=== PATIENT | female | born 1955 | race Two or more races ===

== ENCOUNTER 2021-07-30 17:56 | Inpatient (IN) | payer OTHER ==
[~2021-07-30] VITALS: Ht 172.7 cm; Wt 73.9 kg
[2021-07-30] MEDS ORDERED: SODIUM CHLORIDE 0.9% 1000ML BAG (SEPSIS BOLUS) IV ONE (18:15)
[2021-07-30 19:26] LABS: CLARITY URINE CLEAR (CLEAR); COLOR URINE YELLOW (YELLOW); KETONES URINE NEGATIVE (NEGATIVE); LEUKOCYTE ESTERASE URINE NEGATIVE (NEGATIVE); NITRITE URINE NEGATIVE (NEGATIVE); OCCULT BLOOD URINE NEGATIVE (NEGATIVE); PROTEIN URINE NEGATIVE (NEGATIVE); SPECIFIC GRAVITY URINE 1.018 (1.005-1.030)
[2021-07-30 19:42] LABS: CANNABINOID URINE SCREEN NEGATIVE (NEGATIVE); PHENCYCLIDINE URINE SCREEN NEGATIVE (NEGATIVE)
[2021-07-30 19:43] LABS: *AMPHETAMINES SCREEN URINE NEGATIVE (NEGATIVE); *BARBITURATES SCREEN URINE NEGATIVE (NEGATIVE); *BENZODIAZEPINES SCREEN URINE NEGATIVE (NEGATIVE); *COCAINE SCREEN URINE NEGATIVE (NEGATIVE); METHADONE URINE SCREEN NEGATIVE (NEGATIVE); OPIATES URINE SCREEN NEGATIVE (NEGATIVE)
[2021-07-30 20:10] LABS: BASOPHILS % 0.3 % (0.0-2.0); EOSINOPHILS % 0.1 % (0.0-5.0); LYMPHOCYTES % 7.6 % (20.0-50.0); MEAN CORPUSCULAR HEMOGLOBIN 28.1 pg (28.0-32.0); MEAN CORPUSCULAR VOLUME 86.6 fL (81.0-99.0); MEAN PLATELET VOLUME 8.1 fl (7.4-10.4); MONOCYTES % 6.7 % (2.0-8.0); NEUTROPHILS % 85.3 % (40.0-76.0); PLATELET 195 x1000/uL (130-400); RED BLOOD CELL COUNT 3.92 mill/uL (4.2-5.4)
[2021-07-30 20:17] LABS: CHLORIDE 109 mEq/L (98-107)
[2021-07-30 20:20] LABS: PROTHROMBIN TIME 11.1 sec (9.6-11.0)
[2021-07-30 20:22] LABS: ETHANOL BLOOD < 10 mg/dL
[2021-07-30] MEDS ORDERED: ONDANSETRON HCL 4MG/2ML INJ IV PRN (22:15)
[2021-07-30] MEDS ORDERED: ACETAMINOPHEN 325MG TABLET PO PRN ×2 (22:15)
[2021-07-30] MEDS ORDERED: IPRATROPIUM/ALBUTEROL 0.5-3(2.5)MG/3ML NEB NEB PRN (22:15)
[2021-07-30] MEDS ORDERED: POTASSIUM CHLORIDE INJ 40 MEQ in DEXT 5% WATER 250 ML IV NR (23:30)
[2021-07-31 02:00] VITALS: BP 155/82
[2021-07-31 04:00] VITALS: BP 133/59
[2021-07-31 08:00] VITALS: BP 163/76
[2021-07-31] MEDS ORDERED: ENOXAPARIN 40MG/0.4ML SYR SUBCUT SCH (09:00)
[2021-07-31 11:47] LABS: BASOPHILS % 0.5 % (0.0-2.0); EOSINOPHILS % 0.2 % (0.0-5.0); HEMATOCRIT. 31.9 % (36.0-48.0); HEMOGLOBIN. 10.4 g/dL (12.0-16.0); MEAN CORPUSCULAR HEMOGLOBIN 28.1 pg (28.0-32.0); MEAN CORPUSCULAR VOLUME 86.6 fL (81.0-99.0); MEAN PLATELET VOLUME 8.2 fl (7.4-10.4); MONOCYTES % 8.9 % (2.0-8.0); NEUTROPHILS % 70.4 % (40.0-76.0); PLATELET 192 x1000/uL (130-400); RED BLOOD CELL COUNT 3.69 mill/uL (4.2-5.4); RED CELL DISTRIBUTION WIDTH 14.6 % (11.6-14.6)
[2021-07-31 11:52] LABS: CHLORIDE 109 mEq/L (98-107)
[2021-07-31 11:58] LABS: PHOSPHORUS 2.5 mg/dL (2.5-4.9)
[2021-07-31 11:59] LABS: TOTAL IRON BINDING CAPACITY 262 ug/dL (250-450)
[2021-07-31 12:00] VITALS: BP 174/90
[2021-07-31 12:15] LABS: FOLIC ACID (FOLATE) SERUM 13.1 ng/mL (>5.38)
[2021-07-31] MEDS ORDERED: LISI40TA13 PO (13:40)
[2021-07-31] MEDS ORDERED: HYDR12.54 PO (13:40)
[2021-07-31] MEDS ORDERED: HYDRALAZINE 20MG/ML VIAL IV PRN (13:45)
[2021-07-31] MEDS ORDERED: LISINOPRIL 40MG TABLET PO SCH (13:45)
[2021-07-31] MEDS ORDERED: MEDICATION NOT ON FORMULARY EA (Hydrochlorothiazide 1 TAB) PO SCH (13:45)
[2021-07-31] MEDS ORDERED: HYDROCHLOROTHIAZIDE 12.5MG CAPSULE PO SCH (15:00)
[2021-07-31 16:00] VITALS: BP 165/94
[2021-07-31] MEDS ORDERED: RISPERIDONE 0.5MG TABLET PO NR (16:30)
[2021-07-31] MEDS ORDERED: RISP0.5T65 PO (20:04)
[2021-07-31 20:06] VITALS: BP 163/88
[2021-08-01] MEDS ORDERED: RISPERIDONE 0.5MG TABLET PO SCH (09:00)
[2021-08-01] MEDS ORDERED: RISPERIDONE 1MG TABLET PO SCH (21:00)
== END 2021-07-31 22:10 | disposition short-term general hospital (02) | DRG 315 ==
LOC: ER 17:56 → 7EST 21:50 → EDBEDREQTM 21:54 → EDBEDREQSVC 21:54 → EDBEDREQ 21:54 → SUPCPDRO 21:56 → ENRESERV 23:35
PROVIDERS: ADMIT Internal Medicine; ATTEND Internal Medicine
DX: I95.9 Hypotension, unspecified (principal); G93.40 Encephalopathy, unspecified; G30.9 Alzheimer's disease, unspecified; F17.200 Nicotine dependence, unspecified, uncomplicated; F02.80 Dementia in other diseases classified elsewhere, unspecified severity, without behavioral disturbance, psychotic disturbance, mood disturbance, and anxiety; E87.6 Hypokalemia; I10 Essential (primary) hypertension; Z79.899 Other long term (current) drug therapy
CPT/HCPCS: 36415; 71045; 80048; 80053; 80305; 80320; 81003; 82607; 82728; 82746; 82962; 83540; 83550; 83605; 83735; 84100; 84145; 84439; 84443; 84484; 85025; 85044; 87077; 87186; 93005; 99291; J1650; J3480; J7030; J7060; G0480